=== PATIENT | male | born 1990 | race Caucasian/White ===

== ENCOUNTER 2017-07-14 13:35 | Emergency (ER) | payer MEDICAID ==
[2017-07-14 13:47] VITALS: RESP 16
--- NOTE | 2017-07-14 13:59 | EDPHY ---
H & P Stated Complaint: Pus on R tonsil;sore throat x 8 days;airway patent Time Seen by Provider: 07/14/17 13:58 HPI/ROS: CHIEF COMPLAINT: Sore throat HISTORY OF PRESENT ILLNESS: The patient presents to the ED within a day history of sore throat. The patient did notice some tonsillar exudate which prompted his visit today. The patient has not been on any recent antibiotics. The patient denies fever cough or congestion. The patient denies all tell LONA. The patient denies any significant past medical history. REVIEW OF SYSTEMS: A comprehensive 10 point review of systems is otherwise negative aside from elements mentioned in the history of present illness. Source: Patient Exam Limitations: No limitations - Personal History Current Tetanus Diphtheria and Acellular Pertussis (TDAP): Yes - Medical/Surgical History Other PMH: healthy - Social History Smoking Status: Never smoked - Physical Exam Exam: General Appearance: Alert, no distress Eyes: Pupils equal and round no pallor or injection ENT, Mouth: Mild exudate of pharyngitis/tonsillitis noted right greater than left, no peritonsillar mass, stridor or trismus. Respiratory: There are no retractions, lungs are clear to auscultation Cardiovascular: Regular rate and rhythm Gastrointestinal: Abdomen is soft and nontender, no masses, bowel sounds normal Neurological: A&O, normal motor function, normal sensory exam, normal cranial nerves Skin: Warm and dry, no rashes Musculoskeletal: No clinical evidence of meningitis Extremities: symmetrical, full range of motion Constitutional: Initial Vital Signs Temperature (C) 37.1 C 07/14/17 13:44 Heart Rate 78 07/14/17 13:44 Respiratory Rate 16 07/14/17 13:44 Blood Pressure 109/62 07/14/17 13:44 O2 Sat (%) 100 07/14/17 13:44 O2 Delivery Mode Room Air Allergies/Adverse Reactions: No Known Allergies Allergy (Unverified 07/14/17 13:44) Home Medications: Medication Instructions Recorded Penicillin V Potassium [Pen Vk] 500 mg PO TID #21 tab 07/14/17 Medical Decision Making ED Course/Re-evaluation: The patient presents to the ED with exudate of pharyngitis. There is no evidence of peritonsillar mass or swelling. The patient will be treated with antibiotics to cover non streptococcal sources of pharyngitis. The patient will be discharged home with customary aftercare instructions and return precautions. - Data Points Laboratory Results: 07/14/17 07/14/17 Unknown 14:00 Group A Strep Screen NEGATIVE (NEGATIVE) Group A Strep DNA Pending Departure - Departure Disposition: Home, Routine, Self-Care Clinical Impression: Acute pharyngitis Condition: Good Instructions: Pharyngitis (ED) Additional Instructions: 1. Take Ibuprofen or Motrin 600 mg by mouth three times a day. 2. Take antibiotics as directed. 3. Please follow up with Ear Nose Throat physician you have been referred to for any unimproved or worsening symptoms. Referrals: Cheryle Browning MD [Medical Doctor] - As per Instructions Prescriptions: Penicillin V Potassium [Pen Vk] 500 mg PO TID #21 tab
[2017-07-14 14:54] VITALS: BP 113/74; PULSE 76; TEMP 98.6; O2SAT 99
== END 2017-07-14 14:51 | disposition home or self-care (01) ==
DX: J02.9 Acute pharyngitis, unspecified (principal)